=== PATIENT | female | born 1995 | race Caucasian/White ===

== ENCOUNTER 2022-04-13 05:15 | Inpatient (IN) | payer OTHER ==
[2022-04-13] MEDS ORDERED: ELECTROLYTE-148 SOLN 1,000 ML IV SCH (05:45)
[2022-04-13] MEDS ORDERED: AMPICILLIN SODIUM 2 GM VIAL ONE ×2 (06:09→19:58)
[2022-04-13] MEDS ORDERED: AMPICILLIN - 2 GM in SODIUM CHLORIDE 100 ML IVPB SCH (06:10)
[2022-04-13 06:33] LABS: BASO % 1.7 % (0-2.0); EOS % 1.1 % (0-4.5); HEMATOCRIT 37.9 % (32.4-45.2); HEMOGLOBIN 12.5 GM/dL (10.7-15.3); LYMPH % 12.3 % (8-40); MCH 30.4 pg (25.7-33.7); MCHC 33.1 g/dl (32.0-36.0); MEAN CELL VOLUME 91.7 fl (80-96); MEAN PLT VOLUME 11.2 fl (7.5-11.1); MONO % 8.5 % (3.8-10.2); NEUT % 76.4 % (42.8-82.8); PLATELET COUNT 117 10^3/uL (134-434); RBC 4.13 M/mm3 (3.60-5.2); RDW 14.3 % (11.6-15.6); WHITE BLOOD COUNT 7.2 K/mm3 (4.0-10.0)
[2022-04-13 06:39] LABS: INR 0.96 (0.83-1.09)
[2022-04-13 06:42] LABS: ACTIVATED PTT 27.8 SECONDS (25.2-36.5)
[2022-04-13 06:47] VITALS: BMI 38.7
[2022-04-13 06:50] LABS: CALCIUM 8.5 mg/dL (8.5-10.1)
[2022-04-13 06:51] LABS: BLOOD UREA NITROGEN 8.3 mg/dL (7-18)
[2022-04-13 06:54] LABS: CREATININE 0.6 mg/dL (0.55-1.3)
[2022-04-13 07:44] LABS: HIV INTERPRETATION NEGATIVE (NEGATIVE)
[2022-04-13] MEDS ORDERED: AMPICILLIN SODIUM 1 GM VIAL ONE ×3 (08:21→15:38)
[2022-04-13] MEDS: AMPICILLIN - 1 GM in SODIUM CHLORIDE 100 ML IVPB SCH ×5 (09:13→20:00)
[2022-04-13] MEDS ORDERED: OXYTOCIN 30 UNITS in 0.9% NS 30 UNIT/500 ML INFUS.BAG IVPB SCH ×2 (09:30→21:30)
[2022-04-13] MEDS ORDERED: OXYTOCIN 30 UNITS in 0.9% NS 30 UNIT/500 ML INFUS.BAG IVPB ONE (09:58)
[2022-04-13] MEDS ORDERED: FENTANYL/BUPIVACAINE/NS/PF - PCEA - 50 ML DISP.SYRIN EP ONE ×2 (14:01→19:36)
[2022-04-13] MEDS ORDERED: NALOXONE HCL 0.4 MG/ML VIAL IVPUSH PRN (14:22)
[2022-04-13] MEDS ORDERED: BUPIVACAINE HCL/PF 0.25% (2.5MG/ML) 10 ML VIAL ONE (14:27)
[2022-04-13] MEDS ORDERED: FENTANYL CITRATE/PF 50 MCG/ML VIAL ONE (14:27)
[2022-04-13] MEDS ORDERED: FENTANYL/BUPIVACAINE/NS/PF - PCEA - 50 ML DISP.SYRIN EP SCH (14:30)
[2022-04-14] MEDS ORDERED: FENTANYL/BUPIVACAINE/NS/PF - PCEA - 50 ML DISP.SYRIN EP ONE (00:04)
[2022-04-14] MEDS ORDERED: AMPICILLIN SODIUM 1 GM VIAL ONE (00:35)
[2022-04-14] MEDS: AMPICILLIN - 1 GM in SODIUM CHLORIDE 100 ML IVPB SCH ×2 (00:35→10:00)
[2022-04-14] MEDS ORDERED: OXYTOCIN 20 UNITS in 0.9% NS 20 UNIT/1,000 ML INFUS.BAG IV ONE (00:38)
[2022-04-14] MEDS ORDERED: LIDOCAINE HCL 1% PRESERVATIVE FREE - 30ML VIAL ONE (00:38)
[2022-04-14] MEDS ORDERED: METHYLERGONOVINE MALEATE 0.2 MG/1 ML AMP IM PRN (02:29)
[2022-04-14] MEDS ORDERED: WITCH HAZEL 50% (TUCKS) 40 PAD/JAR PAD TP PRN (02:29)
[2022-04-14] MEDS ORDERED: BENZOCAINE 28 GM HEMORRHOIDAL OINTMENT TP PRN (02:29)
[2022-04-14] MEDS ORDERED: oxyCODONE HCL 5 MG TABLET PO PRN (02:29)
[2022-04-14] MEDS ORDERED: BISACODYL 10 MG SUPP.RECT RC PRN (02:29)
[2022-04-14] MEDS ORDERED: ACETAMINOPHEN 325 MG TABLET (FP) PO PRN (02:29)
[2022-04-14] MEDS ORDERED: BENZOCAINE 20% 57 GM BOTTLE TP PRN (02:29)
[2022-04-14] MEDS ORDERED: OXYTOCIN 20 UNITS in 0.9% NS 20 UNIT/1,000 ML INFUS.BAG IV SCH (02:30)
[2022-04-14 03:38] LABS: CORD BASE EXCESS -4.4 mmol/L (0-2); CORD HCO3 20.7 mmHg (20-29); CORD PCO2 38.9 mmHg (30-78); CORD pH 7.344 (7.14-7.44)
[2022-04-14] MEDS: FERROUS SO4 325 MG TABLET (FP) PO SCH ×3 (08:25→18:09)
[2022-04-14] MEDS: PRENATAL VITAMINS W/ FOLIC ACID TABLET (FP) PO SCH (10:00)
[2022-04-14] MEDS: IBUPROFEN 600 MG TABLET (FP) PO PRN (19:53)
[2022-04-15] MEDS: IBUPROFEN 600 MG TABLET (FP) PO PRN ×2 (03:20→20:23)
[2022-04-15] MEDS: FERROUS SO4 325 MG TABLET (FP) PO SCH ×3 (07:56→17:31)
[2022-04-15 08:55] LABS: BASO % 0.3 % (0-2.0); EOS % 0.5 % (0-4.5); HEMATOCRIT 32.4 % (32.4-45.2); HEMOGLOBIN 10.4 GM/dL (10.7-15.3); LYMPH % 20.1 % (8-40); MCH 29.8 pg (25.7-33.7); MCHC 32.2 g/dl (32.0-36.0); MEAN CELL VOLUME 92.4 fl (80-96); MEAN PLT VOLUME 11.2 fl (7.5-11.1); MONO % 6.5 % (3.8-10.2); NEUT % 72.6 % (42.8-82.8); PLATELET COUNT 125 10^3/uL (134-434); RDW 14.4 % (11.6-15.6); WHITE BLOOD COUNT 11.5 K/mm3 (4.0-10.0)
[2022-04-15] MEDS: PRENATAL VITAMINS W/ FOLIC ACID TABLET (FP) PO SCH (09:11)
[2022-04-15] MEDS ORDERED: SENNOSIDES/DOCUSATE COMBO (SENNA PLUS) TABLET (UD) PO PRN (22:00)
[2022-04-16] MEDS: FERROUS SO4 325 MG TABLET (FP) PO SCH ×2 (08:51→12:11)
[2022-04-16] MEDS: PRENATAL VITAMINS W/ FOLIC ACID TABLET (FP) PO SCH (09:32)
[2022-04-16 11:23] VITALS: BP 118/82; PULSE 88; RESP 18; TEMP 97.8
== END 2022-04-16 13:10 | disposition home or self-care (01) | DRG 807 ==
LOC: JLDR 05:15 → J3W 04-14 04:18
PROVIDERS: ADMIT Obstetrics & Gynecology; ATTEND Obstetrics & Gynecology
PROC: 10H07YZ Insertion of Other Device into Products of Conception, Via Natural or Artificial Opening (ICD-10-PCS; 2022-04-13)
PROC: 10E0XZZ Delivery of Products of Conception, External Approach (ICD-10-PCS; principal; 2022-04-14)
PROC: 0KQM0ZZ Repair Perineum Muscle, Open Approach (ICD-10-PCS; 2022-04-14)
PROC: 0W8NXZZ Division of Female Perineum, External Approach (ICD-10-PCS; 2022-04-14)
DX: O42.02 Full-term premature rupture of membranes, onset of labor within 24 hours of rupture (principal); Z37.0 Single live birth; O70.1 Second degree perineal laceration during delivery; O24.420 Gestational diabetes mellitus in childbirth, diet controlled; O99.824 Streptococcus B carrier state complicating childbirth; O99.214 Obesity complicating childbirth; E66.9 Obesity, unspecified; Z3A.39 39 weeks gestation of pregnancy
CPT/HCPCS: 36415; 36600; 59409; 80048; 82803; 82962; 85025; 85610; 85730; 86780; 86850; 86900; 86901; 87389; C9803-CS; U0003; U0005